=== PATIENT | male | born 2000 | race Caucasian/White ===

== ENCOUNTER 2021-12-14 23:55 | Emergency (ER) | payer OTHER, SELFPAY ==
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
[2021-12-15 00:06] VITALS: BP 113/64; PULSE 71; RESP 18; TEMP 36.6; O2SAT 98; BMI 20.7
[2021-12-15 02:26] VITALS: BP 122/75; PULSE 83; RESP 16; O2SAT 97
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
[2021-12-15] MEDS: Ketorolac Tromethamine 15 MG/ML VIAL IM (03:52)
[2021-12-15] MEDS: Lidocaine 4 % Patch ADH..PATCH 1 PATCH TRANSDERMA (03:52)
[2021-12-15] MEDS: Acetaminophen 325 MG TABLET 975 MG PO (03:53)
== END 2021-12-15 04:09 | disposition home or self-care (01) ==
PROVIDERS: Emergency Provider Student in an Organized Health Care Education/Training Program
DX: R55 Syncope and collapse (principal); F14.90 Cocaine use, unspecified, uncomplicated; F12.90 Cannabis use, unspecified, uncomplicated; Z79.899 Other long term (current) drug therapy
CPT/HCPCS: 70450; 72125; 93005; 96372; 99284; 99285; J1885